=== PATIENT | female | born 1945 | race Caucasian/White ===

== ENCOUNTER → 2021-04-09 12:03 | Outpatient (CLI) | payer MEDICARE, BC, SELFPAY ==
[2021-04-09 19:27] LABS: Blood Urea Nitrogen 27 mg/dL (7-17)
[2021-04-09 20:58] LABS: Estimated Glomerular Filt Rate 42.6 mL/min (>60)
== END ==
PROVIDERS: Family Provider Family Medicine; PCP Family Medicine; Visit Provider Psychiatry & Neurology Neurology
DX: G90.9 Disorder of the autonomic nervous system, unspecified (principal)
CPT/HCPCS: 82565; 84520

== ENCOUNTER → 2021-09-18 07:58 | Outpatient (CLI) | payer MEDICARE, BC, SELFPAY ==
[2021-09-18 20:59] LABS: COVID19 - ORCAS (NP or Nasal) Negative (Negative)
== END ==
PROVIDERS: Family Provider Family Medicine; PCP Family Medicine; Visit Provider Physician Assistant
DX: Z20.822 Contact with and (suspected) exposure to COVID-19 (principal)
CPT/HCPCS: C9803; U0003

== ENCOUNTER → 2023-12-15 10:43 | Outpatient (CLI) | payer MEDICARE, BC, SELFPAY | PROVIDERS: Family Provider Family Medicine; PCP Family Medicine; Referring Provider Family Medicine; Visit Provider Surgery | DX: L89.323 Pressure ulcer of left buttock, stage 3 (principal); M35.00 Sjogren syndrome, unspecified; M32.10 Systemic lupus erythematosus, organ or system involvement unspecified; Z79.01 Long term (current) use of anticoagulants; R06.09 Other forms of dyspnea | CPT/HCPCS: 11042; 99203; 99212 ==

== ENCOUNTER → 2023-12-31 11:51 | Outpatient (CLI) | payer MEDICARE, BC, SELFPAY | LOC: WC 11:53 | PROVIDERS: Family Provider Family Medicine; PCP Family Medicine; Referring Provider Family Medicine; Visit Provider Surgery | DX: Z09 Encounter for follow-up examination after completed treatment for conditions other than malignant neoplasm (principal); Z87.2 Personal history of diseases of the skin and subcutaneous tissue; L89.323 Pressure ulcer of left buttock, stage 3 | CPT/HCPCS: 99212; 99213 ==

== ENCOUNTER → 2025-01-23 10:34 | Outpatient (CLI) | payer MEDICARE, BC, SELFPAY ==
[2025-01-23 11:18] LABS: Add Manual Diff / Slide Review NO; Basophils Absolute Auto 0 /uL (0-100); Basophils Percent Auto 0.6 % (0-2); Eosinophils Absolute Auto 0 /uL (0-450); Eosinophils Percent Auto 1.1 % (2-4); Hematocrit 38.3 % (36-46); Hemoglobin 12.4 g/dL (12.0-16.0); Lymphocytes Absolute Auto 1200 /uL (1100-4500); Lymphocytes Percent Auto 27.6 % (25-40); Mean Corpuscular HGB Conc 32.4 % (30-36); Mean Corpuscular Hemoglobin 29.7 PG (26-34); Mean Corpuscular Volume 91.5 fL (80-100); Monocytes Absolute Auto 400 /uL (0-900); Monocytes Percent Auto 8.7 % (3-14); Neutrophils Absolute Auto 2700 /uL (1500-7000); Platelet Count 142 X10^3/uL (150-400); Red Blood Cell Count 4.18 X10^6/uL (4.0-5.2); Red Cell Distribution Width 14.1 % (11.6-14.8); White Blood Cell Count 4.3 X10^3/uL (4.5-11.0)
== END ==
PROVIDERS: Family Provider Family Medicine; PCP Family Medicine; Referring Provider Internal Medicine Rheumatology; Visit Provider Internal Medicine Rheumatology
DX: M32.9 Systemic lupus erythematosus, unspecified (principal)
CPT/HCPCS: 36415; 85025